=== PATIENT | male | born 1970 | race Caucasian/White ===

== ENCOUNTER 2017-12-20 13:38 | Day surgery (SDC) | payer MEDICAID ==
[2017-12-20] MEDS ORDERED: ceFAZolin IN SWFI 2 GM/20 ML SYRINGE IVP ONE (14:06)
--- NOTE | 2017-12-20 14:06 | P.GSHP ---
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 He presents today for surgical excision. PAST MEDICAL HISTORY: Please see list. PAST SURGICAL HISTORY: Please see list. MEDICATIONS: Please see list. ALLERGIES: Please see list. SOCIAL HISTORY: No illicit drug use FAMILY HISTORY: No reports of Crohn disease or ulcerative colitis. REVIEW OF ORGAN SYSTEMS: CONSTITUTIONAL: No reports of fevers or chills. GI: Denies any blood in stools or constipation. PHYSICAL EXAM: VITAL SIGNS: Stable Musculoskeletal: Approximately 2 cm lipomas, superficial, along the left volar foream SKIN: Lesion identified along bilateral thighs. GENERAL: Well developed and in no acute distress. Pleasant. HEENT: No sclera icterus. Extraocular movements grossly intact. Moist buccal mucosa. Head is atraumatic, normocephalic. Hears conversational speech. No nasal drainage. NECK: Supple without lymphadenopathy. No JV distention. CHEST: Non-labored respirations and equal bilateral excursions. CARDIOVASCULAR: Regular rate and rhythm. Palpable 2+ radial pulses. ABDOMEN: Soft. Non-tender. Nondistended. 5-cm lipoma intra-muscular of the left lateral abdomen. 2-cm nodule of the right upper abdomen NEUROLOGIC: No focal or lateralizing signs. PSYCH: Appropriate affect. Alert and oriented to person, place and time. ASSESSMENT: 1. Lipomas along the anterior abdominal wall, left upper (main concern), right upper 2. Lipoma along left forearm PLAN: 1. Will proceed of excision of subcutaneous tumors along the left abdominal wall, possible right upper abdomen and left forearm 2. DVT prophylaxis. 3. Antibiotic prophylaxis. 4. Time of recovery, at least one week. Medications and Allergies Home Medications Medication Instructions Recorded Confirmed Type No Known Home Medications 12/20/17 12/20/17 History Allergies Allergy/AdvReac Type Severity Reaction Status Date / Time No Known Allergies Allergy Verified 12/20/17 14:01 Surgical - Exam Vital Signs Temp Pulse Resp BP Pulse Ox 98.2 F 75 16 133/83 97 12/20/17 13:56 12/20/17 13:56 12/20/17 13:56 12/20/17 13:56 12/20/17 13:56
[2017-12-20] MEDS ORDERED: LACTATED RINGERS 1,000 ML IV ONE (14:09)
[2017-12-20] MEDS ORDERED: LIDOCAINE 1% 20 ML VIAL (10MG/ML) FOR IV START INTRADERMA ONE (14:10)
[2017-12-20] MEDS ORDERED: ONDANSETRON 4 MG/2 ML VIAL IVP ONE (14:47)
[2017-12-20] MEDS ORDERED: DEXAMETHASONE SOD PHOSPHATE 10 MG/ML 1 ML VIAL IV ONE (14:47)
[2017-12-20] MEDS ORDERED: BUPIVACAIN-EPI 0.5%-1:200,000 30 ML VIAL SQ ONE (15:55)
[2017-12-20] MEDS ORDERED: fentaNYL (PF) 50 MCG/ML 2 ML AMP ONE (15:59)
[2017-12-20] MEDS ORDERED: PROPOFOL 10 MG/ML 20 ML VIAL IV ONE (15:59)
[2017-12-20] MEDS ORDERED: LIDOCAINE 1% INJ 10MG/ML (20 ML MDV) ONE (15:59)
[2017-12-20] MEDS ORDERED: diphenhydrAMINE 50 MG/ML 1 ML VIAL ONE (15:59)
[2017-12-20] MEDS ORDERED: MIDAZOLAM 2 MG/2 ML VIAL ONE (15:59)
[2017-12-20] MEDS ORDERED: SODIUM CHLORIDE 0.9% 50 ML with ceFAZolin 2,000 MG IV ONE ×2 (16:17)
[2017-12-20 17:06] VITALS: TEMP 97
[2017-12-20 17:17] VITALS: RESP 16
--- NOTE | 2017-12-20 17:46 | P.OP ---
Date of Procedure: 12/20/17 Description of Procedure: SURGEON: MARICEL SWANSON MD SENIOR INVESTIGATOR: NONE. PREOPERATIVE DIAGNOSES: 1. Left lower abdominal wall lipoma 2. Right upper quadrant abdominal wall lipoma 3. Left forearm lipoma 4. Obesity due to excess calories, BMI 34.5 POSTOPERATIVE DIAGNOSES: 1. Left lower abdominal wall lipoma 2. Right upper quadrant abdominal wall lipoma 3. Left forearm lipoma 4. Obesity due to excess calories, BMI 34.5 OPERATION: 1. Excision of left lower abdominal wall subcutaneous tumor 5 cm with intermediate closure 7 cm 2. Excision of right upper abdominal wall subcutaneous tumor 4.5 cm with intermediate closure 6 cm 3. Excision of left forearm volar aspect subcutaneous tumor 2.5 cm with intermediate closure 4 cm ANESTHESIA: LMA ESTIMATED BLOOD LOSS: 3 mL. SPECIMENS REMOVED: 1. Left abdominal wall mass 2. Right abdominal wall mass 3. Left forearm mass COMPLICATIONS: None. FINDINGS: 1. Abdominal wall mass involving the deep subcutaneous tissue of left lower abdomen and right upper abdomen 2. Superficial subcutaneous tumor along the left forearm INDICATIONS: The patient is a 47-year-old male who presents with Multiple abdominal wall tumors including left forearm. He reported pain and discomfort and sought excision. Surgical options, including excision was discussed. Benefits and risks were described. Informed consent was obtained. DESCRIPTION OF PROCEDURE: Patient was brought into the operating room, laid in supine position. After adequate LMA sedation, the abdomen was prepped and draped in standard sterile fashion using ChloraPrep. A timeout protocol was confirmed with the surgical team regarding patient's name including procedures to be performed. Preoperative medications was administered. Over the prominence of the left lower abdominal wall mass, the skin was anesthetized. A transverse 7 cm incision was made using #15 blade. Hemostat was used to circumferentially dissect the tumor onto the field and passed off for further pathological analysis. Hemostasis was checked with Bovie cautery. The incision was closed in layers of 0 Vicryl for the deep subcutaneous tissue and dermis. The rest of the skin incision was reapproximated using 4-0 Monocryl in a running subcuticular fashion. The skin was cleansed with dilute hydrogen peroxide. Liquid glue and tape was applied lengthwise. Surgical dressing Optifoam was placed with Tegaderm. Next, attention was brought to the right upper abdominal mass and addressed in a similar fashion, the skin was anesthetized. A transverse 6 cm incision was made using #15 blade. Hemostat was used to circumferentially dissect the tumor onto the field and passed off for further pathological analysis. Hemostasis was checked with Bovie cautery. The incision was closed in layers of 0 Vicryl for the deep subcutaneous tissue and dermis. The rest of the skin incision was reapproximated using 4-0 Monocryl in a running subcuticular fashion. The skin was cleansed with dilute hydrogen peroxide. Liquid glue and tape was applied lengthwise. Surgical dressing Optifoam was placed with Tegaderm. Final attention was brought to the left forearm where the skin was localized. A transverse 4 cm incision was made. Hemostat was used to circumferentially dissect the tumor onto the field and passed off for further pathological analysis. Hemostasis was checked with Bovie cautery. The incision was closed using 3-0 Vicryl for the subcutaneous tissue and dermis. The rest of the skin incision was reapproximated using 4-0 Monocryl in a running subcuticular fashion. The skin was cleansed with dilute hydrogen peroxide. Liquid glue and tape was applied lengthwise. Surgical dressing Optifoam was placed with Tegaderm. Abdominal binder was placed. At the end of the procedure, needle, sponge, and instrument count had been verified correct by the surgical corsetier. The patient was taken to the postanesthesia care unit in stable condition. Plan - Discharge Summary New Discharge Prescriptions: New HYDROcodone/APAP 5-325MG [[place] 5-325] 1 tab PO Q4HR PRN 3 Days #18 tab PRN Reason: Pain Discharge Medication List HYDROcodone/APAP 5-325MG [[place] 5-325] 1 tab PO Q4HR PRN 3 Days #18 tab [Rx] Follow up Appointment(s)/Referral(s): Maricel Swanson MD [STAFF PHYSICIAN] - 12/24/17 Patient Instructions/Handouts: *Surgery [facility] - (Anesthesia) Discharge Instructions Outpatient Surgery, Lipoma Removal (GEN) Activity/Diet/Wound Care/Special Instructions: DO NOT REMOVE DRESSING. MAY SHOWER. NO BATHTUB SOAK Discharge Disposition: HOME SELF-CARE
[2017-12-20 18:01] VITALS: BP 125/84; PULSE 77
== END 2017-12-20 18:18 | disposition home or self-care (01) ==
LOC: OR 13:38
PROVIDERS: ATTEND Surgery Plastic and Reconstructive Surgery
DX: D17.1 Benign lipomatous neoplasm of skin and subcutaneous tissue of trunk (principal); D17.22 Benign lipomatous neoplasm of skin and subcutaneous tissue of left arm; E66.09 Other obesity due to excess calories; Z68.34 Body mass index [BMI] 34.0-34.9, adult; G47.33 Obstructive sleep apnea (adult) (pediatric); Z99.89 Dependence on other enabling machines and devices
CPT/HCPCS: 22903 ×2; 11403; 12032; J2250; J1200; J1100; J2405; J2001; J3010; J0690; J2704; 88304

== ENCOUNTER 2020-06-16 10:11 | Emergency (ER) | payer BC, MEDICAID ==
[2020-06-16 10:47] VITALS: RESP 18
--- NOTE | 2020-06-16 11:38 | ED ---
URI HPI - General Source: patient, RN notes reviewed Mode of arrival: ambulatory Limitations: no limitations - History of Present Illness MD Complaint: rhinorrhea, nasal congestion, sinus pain -: days(s) (tested positive Wednesday 06/14, symptoms started Sunday) Severity: mild Severity scale (1-10): 4 Consistency: constant Improves With: other (mucinex and excedrin) Worsens With: deep breaths Context: other (covid positive on Sunday) Associated Symptoms: headache, nasal congestion, shortness of breath Treatments Prior to Arrival: Aspirin (mucinex) <Kam Echols - Last Filed: 06/16/20 12:34> <Gloria Farris - Last Filed: 06/22/20 23:32> - General Chief Complaint: Upper Respiratory Infection Stated Complaint: Covid+,SOB Time Seen by Provider: 06/16/20 11:34 - History of Present Illness Initial Comments: Well-appearing 49-year-old male patient presents to the emergency room with complaints of shortness of breath, congestion and fatigue starting Sunday night. States Sunday went to urgent care and was tested for Covid and found positive. Patient states has been using Excedrin and Mucinex [id number] last dose yesterday. He states this time of year usually develops sinus infection and thought that was what it was and was hoping to get an antibiotic for sinus infection which he did not get. Complaining of frontal headache and congestion 4/10 headache pain. Denies chest pain, fever, nausea, vomiting, diarrhea. No significant medical history, no daily meds. Surgical history of bilateral knees in 1996, 2003, lipoma 2018 and left arm, left side. (Kam Echols) - Related Data Home Medications Medication Instructions Recorded Confirmed No Known Home Medications 06/21/20 06/21/20 Allergies Allergy/AdvReac Type Severity Reaction Status Date / Time No Known Allergies Allergy Verified 06/21/20 15:08 Review of Systems ROS Other: All systems not noted in ROS Statement are negative. <Kam Echols - Last Filed: 06/16/20 12:34> ROS Other: All systems not noted in ROS Statement are negative. <Gloria Farris - Last Filed: 06/22/20 23:32> ROS Statement: Those systems with pertinent positive or pertinent negative responses have been documented in the HPI. Past Medical History Past Medical History: GERD/Reflux, Hearing Disorder / Deafness Additional Past Medical History / Comment(s): TINNITUS History of Any Multi-Drug Resistant Organisms: None Reported Past Surgical History: Orthopedic Surgery, Tonsillectomy Additional Past Surgical History / Comment(s): BILAT KNEE ARTHROSCOPY/LIPOMAS EXCISED/LEFT SHOULDER IMPINGEMENT SURGERY Past Anesthesia/Blood Transfusion Reactions: No Reported Reaction Past Psychological History: No Psychological Hx Reported Past Alcohol Use History: Occasional <Kam Echols - Last Filed: 06/16/20 12:34> General Exam Limitations: no limitations General appearance: alert, in no apparent distress Head exam: Present: atraumatic, normocephalic, normal inspection Eye exam: Present: normal appearance, PERRL, EOMI. Absent: scleral icterus, conjunctival injection, periorbital swelling ENT exam: Present: normal exam, mucous membranes moist Neck exam: Present: normal inspection. Absent: tenderness, meningismus, lymphadenopathy Respiratory exam: Present: normal lung sounds bilaterally. Absent: respiratory distress, wheezes, rales, rhonchi, stridor Cardiovascular Exam: Present: regular rate, normal rhythm, normal heart sounds. Absent: systolic murmur, diastolic murmur, rubs, gallop, clicks, JVD GI/Abdominal exam: Present: soft, normal bowel sounds. Absent: distended, tenderness, guarding, rebound, rigid Skin exam: Present: warm, dry, intact, normal color. Absent: rash, cyanosis, diaphoretic <Kam Echols - Last Filed: 06/16/20 12:34> Course Vital Signs 06/16/20 06/16/20 06/16/20 10:43 11:39 13:06 Temperature 98.2 F 98.1 F Pulse Rate 75 71 65 Respiratory 18 18 18 Rate Blood Pressure 136/95 138/96 131/91 O2 Sat by Pulse 97 100 97 Oximetry Medical Decision Making - EKG Data -: EKG Interpreted by Me EKG shows normal: sinus rhythm - Radiology Data Radiology results: report reviewed, image reviewed <Kam Echols - Last Filed: 06/16/20 12:34> <Gloria Farris - Last Filed: 06/22/20 23:32> - Medical Decision Making Well-appearing 49-year-old male in NADm with no risk factors for PE. heart rate 75 respiratory rate 18 sat 99% on room air. States feels like sinus congestion, status positive for Covid on Sunday. chest x-ray negative for consolidation. Patient will be given albuterol inhaler every 4 hours as needed for shortness of breath, directed to continue with Mucinex, and add Flonase, vitamin D and increase fluids to 6-8 ounces of water a day. Return to emergency room if worsening symptoms and follow up with primary care doctor at the [facility] in [place] (Kam Echols) I was available for consultation in the emergency department. The history and physical exam were done by the midlevel provider. I was consulted for this patients care. I reviewed the case with the midlevel provider and based on their presentation of the patient, I agree with the assessment, medical decision making and plan of care as documented. Chart was dictated using Ente[employer] dictation software. Attempts were made to correct any dictation errors however some typographical errors may persist. (Gloria Farris) - EKG Data EKG Comments: Normal sinus rhythm with ventricular rate of 60, IL interval 0.146 QRS of 0.84 QTc of 402 EKG reviewed by me and Dr. Farris (Kam Echols) - Radiology Data Mild torturous thoracic aorta, no paul consolidation however some stranding atelectasis noted. (aKm Echols) Disposition Is patient prescribed a controlled substance at d/c from ED?: No Time of Disposition: 12:48 <Kam Echols - Last Filed: 06/16/20 12:34> <Gloria Farris - Last Filed: 06/22/20 23:32> Clinical Impression: COVID-19, Sinusitis Disposition: HOME SELF-CARE Condition: Good Instructions (If sedation given, give patient instructions): Sinusitis (ED) Additional Instructions: Return to the emergency room if worsening shortness of breath or chest pain. Use albuterol as prescribed for shortness of breath every 6 hours and follow-up with your primary doctor in 1 week. Referrals: [facility],Clinic [Primary Care Provider] - 1-2 days
--- NOTE | 2020-06-16 12:29 | XR ---
EXAMINATION TYPE: XR chest 2V DATE OF EXAM: 06/16/2020 COMPARISON: None HISTORY: 49-year-old male with pain and shortness of breath TECHNIQUE: PA and lateral views FINDINGS: Heart normal size. Mild elongation/tortuosity of the thoracic aorta. Some strandy areas of atelectasi s. No paul consolidation or pleural effusion is identified. IMPRESSION: No definite acute cardiopulmonary process.
[2020-06-16 13:07] VITALS: BP 131/91; PULSE 65; TEMP 98.1
== END 2020-06-16 13:06 | disposition home or self-care (01) ==
LOC: EC 10:11
DX: U07.1 COVID-19 (principal); J98.11 Atelectasis; J32.9 Chronic sinusitis, unspecified; H91.90 Unspecified hearing loss, unspecified ear
CPT/HCPCS: 71046; 93005; 99283

== ENCOUNTER 2020-06-21 12:18 | Emergency (ER) | payer BC ==
--- NOTE | 2020-06-21 13:54 | XR ---
EXAMINATION TYPE: XR chest 1V portable DATE OF EXAM: 06/21/2020 Comparison: 06/16/2020 Clinical History: 49-year-old male shortness of breath, Suspected COVID-19 pneumonia Findings: Low lung volumes and crowded vascular markings. Heart is enlarged. Mild patchy interstitial density i n the periphery of the lower lung. No pleural effusion. Impression: Hypoventilatory changes. Unable to exclude early peripheral lower lung interstitial infiltrates. Find ings may reflect early COVID pneumonia.
[2020-06-21 14:02] LABS: Basophils # (A) 0.1 k/uL (0-0.2); Basophils % (A) 2 %; Eosinophils # (A) 0.2 k/uL (0-0.7); Eosinophils % (A) 3 %; HCT 50.5 % (39.0-53.0); HGB 17.4 gm/dL (13.0-17.5); Lymphocytes # (A) 1.3 k/uL (1.0-4.8); Lymphocytes % (A) 16 %; MCH 32.1 pg (25.0-35.0); MCHC 34.4 g/dL (31.0-37.0); MCV 93.2 fL (80.0-100.0); Mean Platelet Volume 8.3; Monocytes # (A) 0.7 k/uL (0-1.0); Monocytes % (A) 8 %; Neutrophils # (A) 5.9 k/uL (1.3-7.7); Neutrophils % (A) 71 %; Platelet Count 191 k/uL (150-450); RBC 5.42 m/uL (4.30-5.90); RDW 12.5 % (11.5-15.5); WBC 8.3 k/uL (3.8-10.6)
--- NOTE | 2020-06-21 14:03 | ED ---
General Adult HPI - General Chief complaint: Shortness of Breath Stated complaint: Covid+, SOB Time Seen by Provider: 06/21/20 12:30 Source: patient, RN notes reviewed, old records reviewed Mode of arrival: ambulatory Limitations: no limitations - History of Present Illness Initial comments: this is a 49-year-old male who presents emergency Department stating he doesn't covert positive about a week ago. Patient states his symptoms for 10 days. Patient states he has been coughing more and having more shortness of breath so his primary medical care doctor sent into the emergency department. Patient denies any fever chills per patient states he lost his taste and smell but he states is coming back. Patient denies any diarrhea. Patient denies abdominal pain patient denies nausea vomiting or diarrhea. Patient denies headache patient denies numbness weakness. Patient states he does feel somewhat fatigued. - Related Data Home Medications Medication Instructions Recorded Confirmed No Known Home Medications 06/21/20 06/21/20 Allergies Allergy/AdvReac Type Severity Reaction Status Date / Time No Known Allergies Allergy Verified 06/21/20 15:08 Review of Systems ROS Statement: Those systems with pertinent positive or pertinent negative responses have been documented in the HPI. ROS Other: All systems not noted in ROS Statement are negative. Past Medical History Past Medical History: GERD/Reflux, Hearing Disorder / Deafness Additional Past Medical History / Comment(s): TINNITUS History of Any Multi-Drug Resistant Organisms: None Reported Past Surgical History: Orthopedic Surgery, Tonsillectomy Additional Past Surgical History / Comment(s): BILAT KNEE ARTHROSCOPY/LIPOMAS EXCISED/LEFT SHOULDER IMPINGEMENT SURGERY Past Anesthesia/Blood Transfusion Reactions: No Reported Reaction Past Psychological History: No Psychological Hx Reported Smoking Status: Never smoker Past Alcohol Use History: Occasional Past Drug Use History: None Reported General Exam - General Exam Comments Initial Comments: GENERAL: Patient is well-developed and well-nourished. Patient is nontoxic and well- hydrated and is in mild distress. ENT: Neck is soft and supple. No significant lymphadenopathy is noted. Oropharynx is clear. Moist mucous membranes. Neck has full range of motion without eliciting any pain. EYES: The sclera were anicteric and conjunctiva were pink and moist. Extraocular movements were intact and pupils were equal round and reactive to light. Eyelid s were unremarkable. PULMONARY: Unlabored respirations. Good breath sounds bilaterally. Patient is crackles bilateral bases CARDIOVASCULAR: There is a regular rate and rhythm without any murmurs gallops or rubs. ABDOMEN: Soft and nontender with normal bowel sounds. SKIN: Skin is clear with no lesions or rashes and otherwise unremarkable. NEUROLOGIC: Patient is alert and oriented x3. Cranial nerves II through XII are grossly intact. Motor and sensory are also intact. Normal speech, volume and content. Symmetrical smile. MUSCULOSKELETAL: Normal extremities with adequate strength and full range of motion. LYMPHATICS: No significant lymphadenopathy is noted PSYCHIATRIC: Normal psychiatric evaluation. Limitations: no limitations Course Vital Signs 06/21/20 12:28 Temperature 98.4 F Pulse Rate 88 Respiratory 18 Rate Blood Pressure 130/94 O2 Sat by Pulse 97 Oximetry Medical Decision Making - Medical Decision Making EKG shows normal sinus rhythm at 72 bpm MN interval 244 QRS 76 QT interval 362 QTC is 396 patient's EKG shows no ST segment elevation or depression. Patient's chest x-ray shows. Early infiltrates bilaterally. These are consistent with clinical pneumonia. Patient is in no respiratory distress when I reevaluated the patient. Patient is oxygenating in the high 90s on room air. - Lab Data Result diagrams: 06/21/20 13:51 06/21/20 13:51 Lab Results 06/21/20 06/21/20 06/21/20 Range/Units 13:51 13:51 13:51 WBC 8.3 (3.8-10.6) k/uL RBC 5.42 (4.30-5.90) m/uL Hgb 17.4 (13.0-17.5) gm/dL Hct 50.5 (39.0-53.0) % MCV 93.2 (80.0-100.0) fL MCH 32.1 (25.0-35.0) pg MCHC 34.4 (31.0-37.0) g/dL RDW 12.5 (11.5-15.5) % Plt Count 191 (150-450) k/uL MPV 8.3 Neutrophils % 71 % Lymphocytes % 16 % Monocytes % 8 % Eosinophils % 3 % Basophils % 2 % Neutrophils # 5.9 (1.3-7.7) k/uL Lymphocytes # 1.3 (1.0-4.8) k/uL Monocytes # 0.7 (0-1.0) k/uL Eosinophils # 0.2 (0-0.7) k/uL Basophils # 0.1 (0-0.2) k/uL D-Dimer 0.41 (<0.60) mg/L FEU Sodium 135 L (137-145) mmol/L Potassium 4.6 (3.5-5.1) mmol/L Chloride 99 (98-107) mmol/L Carbon Dioxide 31 H (22-30) mmol/L Anion Gap 5 mmol/L BUN 15 (9-20) mg/dL Creatinine 1.11 (0.66-1.25) mg/dL Est GFR (CKD-EPI)AfAm 89 (>60 ml/min/1.73 sqM) Est GFR (CKD-EPI)NonAf 77 (>60 ml/min/1.73 sqM) Glucose 80 (74-99) mg/dL Calcium 9.4 (8.4-10.2) mg/dL Total Bilirubin 0.6 (0.2-1.3) mg/dL AST 61 H (17-59) U/L ALT 106 H (4-49) U/L Alkaline Phosphatase 81 (38-126) U/L Troponin I (0.000-0.034) ng/mL Total Protein 7.1 (6.3-8.2) g/dL Albumin 4.4 (3.5-5.0) g/dL 06/21/20 Range/Units 13:51 WBC (3.8-10.6) k/uL RBC (4.30-5.90) m/uL Hgb (13.0-17.5) gm/dL Hct (39.0-53.0) % MCV (80.0-100.0) fL MCH (25.0-35.0) pg MCHC (31.0-37.0) g/dL RDW (11.5-15.5) % Plt Count (150-450) k/uL MPV Neutrophils % % Lymphocytes % % Monocytes % % Eosinophils % % Basophils % % Neutrophils # (1.3-7.7) k/uL Lymphocytes # (1.0-4.8) k/uL Monocytes # (0-1.0) k/uL Eosinophils # (0-0.7) k/uL Basophils # (0-0.2) k/uL D-Dimer (<0.60) mg/L FEU Sodium (137-145) mmol/L Potassium (3.5-5.1) mmol/L Chloride (98-107) mmol/L Carbon Dioxide (22-30) mmol/L Anion Gap mmol/L BUN (9-20) mg/dL Creatinine (0.66-1.25) mg/dL Est GFR (CKD-EPI)AfAm (>60 ml/min/1.73 sqM) Est GFR (CKD-EPI)NonAf (>60 ml/min/1.73 sqM) Glucose (74-99) mg/dL Calcium (8.4-10.2) mg/dL Total Bilirubin (0.2-1.3) mg/dL AST (17-59) U/L ALT (4-49) U/L Alkaline Phosphatase (38-126) U/L Troponin I <0.012 (0.000-0.034) ng/mL Total Protein (6.3-8.2) g/dL Albumin (3.5-5.0) g/dL Disposition Clinical Impression: Pneumonia due to COVID-19 virus Disposition: HOME SELF-CARE Condition: Good Instructions (If sedation given, give patient instructions): Coronavirus Disease 2019 (COVID-19) Additional Instructions: Patient is to return to emergency department if there is any difficulty breathing or worsening shortness of breath Is patient prescribed a controlled substance at d/c from ED?: No Referrals: [facility],Clinic [Primary Care Provider] - 1-2 days Time of Disposition: 15:13
[2020-06-21 14:16] LABS: Albumin 4.4 g/dL (3.5-5.0); Calcium 9.4 mg/dL (8.4-10.2); Potassium 4.6 mmol/L (3.5-5.1); Total Bilirubin 0.6 mg/dL (0.2-1.3); Total Protein 7.1 g/dL (6.3-8.2)
[2020-06-21 15:15] VITALS: RESP 20
[2020-06-21 15:33] VITALS: BP 142/88; PULSE 75; TEMP 98.3
== END 2020-06-21 15:20 | disposition home or self-care (01) ==
LOC: EC 12:18
DX: U07.1 COVID-19 (principal); J12.82 Pneumonia due to coronavirus disease 2019; K21.9 Gastro-esophageal reflux disease without esophagitis
CPT/HCPCS: 36415; 71045; 80053; 84484; 85025; 85379; 93005; 99285

== ENCOUNTER → 2023-12-31 | Outpatient (CLI) | payer BC ==
[2023-12-31 21:56] LABS: Albumin 4.3 g/dL (3.8-4.9)
[2023-12-31 22:36] LABS: Estradiol 22.3 pg/mL
[2024-01-01 07:25] LABS: Follicle Stimulating Hormone 6.1 mIU/mL; Luteinizing Hormone 4.1 mIU/mL
[2024-01-05 22:38] LABS: Albumin, LC/MS/MS 4.3 g/dL (3.6-5.1); Testosterone, Free, LC/MS/MS 34.6 pg/mL (46.0-224.0)
== END | disposition home or self-care (01) ==
LOC: LABWHC1 12:43
PROVIDERS: ATTEND Urology
DX: N52.01 Erectile dysfunction due to arterial insufficiency (principal)
CPT/HCPCS: 36415; 82040; 82670; 82947; 83001; 83002; 84146; 84270; 84403; 84436; 84443; 84479